=== PATIENT | male | born 1970 | race Caucasian/White ===

== ENCOUNTER 2016-12-15 09:26 | Emergency (ER) | payer OTHER ==
[2016-12-15] MEDS ORDERED: ONDANSETRON HCL INJ/PF 4 MG/2 ML SDV IV ONE (10:20)
[2016-12-15] MEDS ORDERED: MORPHINE SULFATE 10 MG/ML INJ IV ONE (10:20)
--- NOTE | 2016-12-15 10:44 | ER Document Report ---
ED Extremity Problem, Upper - General Chief Complaint: Arm Injury Stated Complaint: FALL/ ARM INJURY Mode of Arrival: Ambulatory Information source: Patient Notes: This is a 46-year-old previously healthy male who presents with right arm and wrist pain after falling off a roof. Patient states he was working on the roof and slipped on a wet shingle and fell onto his outstretched right upper extremity. He states he did not hit his head and he did not lose consciousness. He complains of pain to the right wrist. He denies other pain or injury. No headache, no neck pain. He's had no nausea or vomiting. He states that his elbow and shoulder feel fine. He last ate last night and has had nothing by mouth today. He is left-hand dominant. TRAVEL OUTSIDE OF THE [place] IN LAST 30 DAYS: No - Related Data Allergies/Adverse Reactions: No Known Allergies Allergy (Verified 10/23/14 20:39) Past Medical History - General Information source: Patient - Social History Smoking Status: Current Every Day Smoker Chew tobacco use (# tins/day): No Frequency of alcohol use: None Drug Abuse: None Family History: Malignancy - Lung cancer - Medical History Medical History: Negative Renal/ Medical History: Denies: Hx Peritoneal Dialysis Surgical Hx: Negative - Immunizations Hx Diphtheria, Pertussis, Tetanus Vaccination: No Review of Systems - Review of Systems Constitutional: No symptoms reported. denies: Chills, Fever EENT: No symptoms reported Cardiovascular: No symptoms reported. denies: Chest pain Respiratory: No symptoms reported. denies: Cough, Hurts to breathe, Short of breath Gastrointestinal: No symptoms reported. denies: Abdomen distended, Abdominal pain, Vomiting Genitourinary: No symptoms reported Musculoskeletal: See HPI Skin: No symptoms reported Hematologic/Lymphatic: No symptoms reported Neurological/Psychological: No symptoms reported. denies: Lost consciousness, Headaches Physical Exam - Vital signs Vitals: Temp Pulse Resp BP Pulse Ox 97.5 F 64 18 98/43 L 100 12/15/16 09:40 12/15/16 09:40 12/15/16 09:40 12/15/16 09:40 12/15/16 09:40 - Notes Notes: PHYSICAL EXAMINATION: GENERAL: Well-appearing, well-nourished and in mild distress secondary to arm pain. Pleasant and conversant HEAD: Atraumatic, normocephalic. EYES: Pupils equal round and reactive to light, extraocular movements intact, sclera anicteric, conjunctiva are normal. ENT: nares patent, oropharynx clear without exudates. Moist mucous membranes. NECK: Normal range of motion, supple without lymphadenopathy. No midline C- spine tenderness to palpation. LUNGS: Breath sounds clear to auscultation bilaterally and equal. No wheezes rales or rhonchi. HEART: Regular rate and rhythm without murmurs ABDOMEN: Soft, nontender, normoactive bowel sounds. No guarding, no rebound. No masses appreciated. EXTREMITIES: RUE: Obvious swelling to R wrist. No open wounds. Radial pulse intact and strong. DNVI. Hand warm, cap refill less than 3 seconds, sensation intact. NEUROLOGICAL: Cranial nerves grossly intact. Normal speech, normal gait. Normal sensory, motor, and reflex exams. PSYCH: Normal mood, anxious affect SKIN: Warm, Dry, normal turgor, no rashes or lesions noted. Course - Re-evaluation Re-evalutation: 12/15/16 10:48 X-ray demonstrates comminuted and intra-articular impacted distal right radius fracture along with right ulnar styloid fracture. I discussed the findings withOrtho Dr. Potts who does recommend CT of the right wrist, splint, and follow-up in his office on Sunday. 12/15/16 12:44 Patient reevaluated. His splint is on and he is neurovascularly intact distally. He denies any development of new symptoms or pain. Specifically he has had no chest pain, shortness of breath, abdominal pain nausea vomiting. He has had no headache or neck pain. His vital signs have been stable. At this time I do not see clinical evidence of any further injury from this fall. Patient will be discharged with pain medication, splint and sling and will follow up with Ortho as arranged on Sunday. Strict return precautions discussed and he is very comfortable with this plan. - Vital Signs Vital signs: Temp Pulse Resp BP Pulse Ox 97.5 F 64 18 106/58 L 100 12/15/16 09:40 12/15/16 09:40 12/15/16 09:40 12/15/16 10:53 12/15/16 09:40 Discharge - Discharge Clinical Impression: Fall from roof as cause of accidental injury Fracture of right distal radius Qualifiers: Encounter type: initial encounter Fracture type: closed Fracture morphology: unspecified fracture morphology Qualified Code(s): S52.501A - Unspecified fracture of the lower end of right radius, initial encounter for closed fracture Condition: Stable Disposition: HOME, SELF-CARE Additional Instructions: Fracture You have a fracture. The typical broken bone requires only protection and sufficient time for healing. "Setting" is necessary only if the bones are crooked or out of position. The physician will re-assess you periodically to make certain that the bone heals without complications. It's important that you follow the instructions given you. The initial treatment is immobilization, elevation of the injury, and cold packs. Not all fractures require a cast. Depending on the location and type of fracture, immobilization may consist of a splint, cast, sling, bulky dressing , or simply rest. The length of time required for healing depends on the location and type of fracture, and on the age of the patient. The treatment plan the physician has outlined for you is customized to your fracture and health condition. Call the doctor or return at once if pain becomes severe, or if severe swelling or numbness develop. ABRASIONS: An abrasion is a scraping injury of the skin. Some scarring may result. The seriousness of an abrasion is not always obvious at first. Hidden tissue damage may be present and infection may occur despite proper care. Complete healing may take from ten days to as long as a month. The healing time depends on the depth of the abrasion, and on the amount of crushing of underlying tissues from the injury. Keep the wound and dressing clean. Do not shower or bathe the area until okayed by the doctor. If the dressing gets wet, remove it and blot the wound dry, then reapply a clean dressing. Dressings should be changed every day. Sunscreen should be used for six months after the skin is healed. If any signs of infection occur (swelling, redness, increasing tenderness, red streaks, profuse purulent drainage from the abrasion, tender lumps in the armpit or groin above the abrasion, or fever), see the doctor immediately. PAIN MEDICATION INJECTION: You have received an injection of a pain medication. You should experience significant pain relief within 45 minutes. If this medication is a narcotic, it will impair your judgement, slow your reaction time and make you sleepy (as well as relieve your pain). Narcotics also can cause nausea. You should not drive, work with machinery, or perform any task requiring mental alertness until all effects of the medication are gone -- six to eight hours. Do not take any alcohol, or sedatives, and do not take any other medication without checking with your physician. ICE PACKS: Apply ice packs frequently against the painful area. Many different schedules are recommended, such as "20 minutes on, 20 minutes off" or "one hour ice, two hours rest." If you need to work, you may need to go longer between ice treatments. You should plan to have the area ice packed AT LEAST one fourth of the time. The ice should be applied over the wrap, tape, or splint, or over a layer of cloth -- not directly against the skin. Some ice bags have a built-in cloth and can be put directly on the skin. ORAL NARCOTIC MEDICATION: You have been given a prescription for pain control. This medication is a narcotic. It's best taken with food, as nausea can result if taken on an empty stomach. Don't operate machinery or drive within six hours of taking this medication. Do not combine this medicine with alcohol, or with any medication which can cause sedation (such as cold tablets or sleeping pills) unless you get permission from the physician. Narcotics tend to cause constipation. If possible, drink plenty of fluids and eat a diet high in fiber and fruits. FOLLOW-UP CARE: If you have been referred to a physician for follow-up care, call the physician s office for an appointment as you were instructed or within the next two days. If you experience worsening or a significant change in your symptoms, notify the physician immediately or return to the Emergency Department at any time for re-evaluation. Prescriptions: Oxycodone HCl/Acetaminophen [Percocet 5-325 mg Tablet] 1 tab PO Q4H PRN #15 tablet PRN Reason: For Pain Forms: Smoking Cessation Education Referrals: SOPHIE POTTS DO [ACTIVE STAFF] - 12/18/16
[2016-12-15 12:51] VITALS: BP 114/66
== END 2016-12-15 12:57 | disposition home or self-care (01) ==
LOC: ER 09:26
DX: S52.501A Unspecified fracture of the lower end of right radius, initial encounter for closed fracture (principal); W19.XXXA Unspecified fall, initial encounter; F17.200 Nicotine dependence, unspecified, uncomplicated
CPT/HCPCS: 99284; 96374; 96375; 73090; 73200; J2270; J2405

== ENCOUNTER 2018-03-26 00:40 | Emergency (ER) | payer SELFPAY ==
[2018-03-26] MEDS ORDERED: DIPHENHYDRAMINE HCL 50 MG/ML VIAL IV ONE (01:14)
[2018-03-26] MEDS ORDERED: NORMAL SALINE 1000 ML 1,000 ML IV ONE (01:14)
[2018-03-26] MEDS ORDERED: KETOROLAC TROMETHAMINE INJ/PF 30 MG/1 ML SDV IV ONE (01:14)
[2018-03-26] MEDS ORDERED: METOCLOPRAMIDE HCL INJ/PF 10 MG/2 ML SDV IV ONE (01:14)
--- NOTE | 2018-03-26 01:15 | ER Document Report ---
ED Headache - General Chief Complaint: Headache Stated Complaint: HEADACHE Time Seen by Provider: 03/26/18 01:06 Notes: Patient is a 47-year-old male who comes emergency department for chief complaint of a headache that started at 9 AM this morning, he states it started out as a mild irritation behind his right eye, progressed and became a throbbing headache, he developed nausea, vomited twice, developed light sensitivity and phonophobia. He denies neck pain, fever, head injury, visual loss, focal numbness or weakness. He states he has had headaches like this before but gets them very infrequently. He does not take any daily medications , only medical history reported as orthopedic surgery. TRAVEL OUTSIDE OF THE [place] IN LAST 30 DAYS: No - Related Data Allergies/Adverse Reactions: No Known Allergies Allergy (Verified 10/23/14 20:39) Past Medical History - General Information source: Patient - Social History Smoking Status: Former Smoker Frequency of alcohol use: None Drug Abuse: None Lives with: Family Family History: Reviewed & Not Pertinent Neurological Medical History: Reports: Hx Migraine Renal/ Medical History: Denies: Hx Peritoneal Dialysis Past Surgical History: Reports: Hx Orthopedic Surgery - Immunizations Hx Diphtheria, Pertussis, Tetanus Vaccination: No Review of Systems - Review of Systems Constitutional: No symptoms reported EENT: No symptoms reported Cardiovascular: No symptoms reported Respiratory: No symptoms reported Gastrointestinal: No symptoms reported Genitourinary: No symptoms reported Male Genitourinary: No symptoms reported Musculoskeletal: No symptoms reported Skin: No symptoms reported Hematologic/Lymphatic: No symptoms reported Neurological/Psychological: See HPI Physical Exam - Vital signs Vitals: Temp Pulse Resp BP Pulse Ox 97.8 F 68 17 113/56 L 100 03/26/18 00:49 03/26/18 00:49 03/26/18 00:49 03/26/18 00:49 03/26/18 00:49 - Notes Notes: GENERAL: Alert, interacts well. No acute distress. HEAD: Normocephalic, atraumatic. EYES: Pupils equal, round, and reactive to light. Extraocular movements intact. ENT: Oral mucosa moist, tongue midline. NECK: Full range of motion. Supple. Trachea midline. LUNGS: Clear to auscultation bilaterally, no wheezes, rales, or rhonchi. No respiratory distress. HEART: Regular rate and rhythm. No murmur ABDOMEN: Soft, non-tender. Non-distended. Bowel sounds present in all 4 quadrants. EXTREMITIES: Moves all 4 extremities spontaneously. No edema, normal radial and dorsalis pedis pulses bilaterally. No cyanosis. BACK: no cervical, thoracic, lumbar midline tenderness. No saddle anesthesia, normal distal neurovascular exam. NEUROLOGICAL: Alert and oriented x3. Normal speech. [cranial nerves II through XII grossly intact]. PSYCH: Normal affect, normal mood. SKIN: Warm, dry, normal turgor. No rashes or lesions noted. Course - Re-evaluation Re-evalutation: Patient is not in any distress, normal neurological exam, gradually developing symptoms, symptoms consistent with a migraine headache, patient has had similar symptoms in the past. No fever, no nuchal rigidity, very low suspicion of meningitis, intracranial hemorrhage, subarachnoid hemorrhage, or other emergent acute process. After medications on reevaluation's patient smiling, very grateful, states his symptoms have completely resolved. Asking to go home. Discussed follow-up and return precautions. Patient states understanding and agreement. - Vital Signs Vital signs: Temp Pulse Resp BP Pulse Ox 97.6 F 67 16 113/63 99 03/26/18 02:49 03/26/18 02:49 03/26/18 02:49 03/26/18 02:49 03/26/18 02:49 Discharge - Discharge Clinical Impression: Headache Qualifiers: Headache type: unspecified Headache chronicity pattern: acute headache Intractability: not intractable Qualified Code(s): R51 - Headache Condition: Stable Disposition: HOME, SELF-CARE Additional Instructions: Your symptoms and response to treatment are consistent with a migraine. Drink plenty fluids, take provided medication if needed for headaches, follow-up with primary care for additional evaluation and management. Return for any concerning symptoms including returned or severe headache, vomiting, fever, or any other concerning symptoms. Prescriptions: Butalb/Acetaminophen/Caffeine [Fioricet (50-325-40 mg) Tablet] 1 tab PO Q4HP PRN #30 tab PRN Reason:
[2018-03-26 02:51] VITALS: BP 113/63
== END 2018-03-26 02:57 | disposition home or self-care (01) ==
LOC: ER 00:40
DX: R51 Headache (principal); Z87.891 Personal history of nicotine dependence
CPT/HCPCS: 99283; 96361; 96374; 96375; J1200; J1885; J2765; J7030